=== PATIENT | male | born 1965 | race Caucasian/White ===

== ENCOUNTER 2025-06-09 04:51 | Inpatient (IN) | payer MEDICAID ==
[2025-06-09] VITALS (10 sets, daily range): BP systolic 100–131; BP diastolic 54–87; PULSE 55–100; RESP 14–22; TEMP 97.6–99.2; O2SAT 92–100
[~2025-06-09] VITALS: Ht 188 cm; Wt 73.6 kg
--- NOTE | 2025-06-09 05:00 | Physician Documentation ---
History of Present Illness ~ Chief Complaint: Bloody Stools Stated Complaint: TRANSFER SE M ALS Time Seen by MD: 04:59 Mode of Arrival: EMS HPI Patient presents to the emergency room for evaluation of GI bleed sent from [facility]. Over the past day he has noticed some black tarry stools and possible hematemesis from vomiting that happened on the side of the road that has dark. Patient was found to be profoundly anemic requiring 2 units of packed red blood cells at sending facility. He states he is feeling much better. No additional bloody stools. Patient does take naproxen a proximally twice a week and drinks moderately but has a distant history of drinking heavily. He is not on blood thinners Medication Reconciliation Allergies: Coded Allergies: No Known Allergies (Unverified , 06/09/25) Scheduled Atorvastatin Calcium (Atorvastatin Calcium), 1 TAB PO DAILY, (Reported) Felodipine (Felodipine ER), 1 TAB PO DAILY, (Reported) Lisinopril (Lisinopril), 1 TAB PO DAILY, (Reported) Pantoprazole Sodium (PROTONIX tablet), 40 MG PO BID Review of Systems ROS All review of systems negative except as per HPI Physical Exam Vital Signs: Temperature: 98.2, Source: Oral, Heart Rate: 73, Respiratory Rate: 16, BP: 127/84, Pulse Oximetry: 97, Weight: 73.600 Physical Exam General: Patient is awake, alert, oriented x4 in no acute distress Head: Normocephalic and atraumatic. Eyes: Conjunctival normal. EOMI. PERRL. ENT: Mucous membranes moist. Neck: Supple, trachea is midline. Chest: Clear to auscultation bilaterally without rales, rhonchi, or wheezes. There is no accessory muscle use or retractions. Cardiac: RRR without murmurs, gallops, or rubs. Abd: Soft, nondistended, nontender, with normoactive bowel sounds. No guarding, rebound, or rigidity. Progress Results/Orders Results/Orders Orders - CATRACHO SAGE MD Monitor (06/09/25 05:03) Saline Lock (06/09/25 05:03) Page Hospitalist (06/09/25 05:03) Fill Out Med Reconciliation (06/09/25 05:03) Completed Orders - CATRACHO SAGE MD Cbc/Diff (06/09/25 05:03) BMP (06/09/25 05:03) PTT (06/09/25 05:03) Pt Inr (06/09/25 05:03) Urinalysis, Cult If Indicated (06/09/25 05:03) Type And Screen (06/09/25 05:03) Electrocardiogram (06/09/25 05:03) Nothing By Mouth (06/09/25 Breakfast) Pantoprazole 40mg/Ns 100ml Bag (Protonix (06/09/25 05:05) Pantoprazole 40mg/Ns 100ml Bag (Protonix (06/09/25 05:41) ALT (06/09/25 05:26) AST (06/09/25 05:26) Total Bili (06/09/25 05:26) MG (06/09/25 05:26) Lipase (06/09/25 05:26) Laboratory Tests Test 06/09/25 05:26 White Blood Count 9.8 Red Blood Count 3.17 L Hemoglobin 8.6 L Hematocrit 25.7 L Mean Corpuscular Volume 81.1 Mean Corpuscular Hemoglobin 27.1 Mean Corpuscular Hemoglobin Concent 33.4 Red Cell Distribution Width 16.4 H Platelet Count 409 Mean Platelet Volume 6.8 L Neutrophils (%) (Auto) 79.2 H Lymphocytes (%) (Auto) 12.4 L Monocytes (%) (Auto) 7.2 Eosinophils (%) (Auto) 0.8 Basophils (%) (Auto) 0.4 Neutrophils # (Auto) 7.8 H Lymphocytes # (Auto) 1.2 Monocytes # (Auto) 0.7 Eosinophils # (Auto) 0.1 Basophils # (Auto) 0.0 CBC Comment Prothrombin Time 11.0 INR International Normalized Ratio 1.1 Activated Partial Thromboplast Time 23 Coagulation Comments Sodium Level 137 Potassium Level 4.0 Chloride Level 105 Carbon Dioxide Level 27.3 Anion Gap 5 L Blood Urea Nitrogen 38 H Creatinine 0.82 Estimated GFR/1.73 m2 > 90 BUN/Creatinine Ratio 46.3 H Glucose Level 100 Calcium Level 7.7 L Magnesium Level 1.7 Total Bilirubin 0.6 Aspartate Amino Transf (AST/SGOT) 16 Alanine Aminotransferase (ALT/SGPT) 15 Alkaline Phosphatase 61 Alkaline Phosphatase Iso-Intestine 1 Alkaline Phosphatase Iso-Bone 13 Alkaline Phosphatase Iso-Liver 86 Albumin 2.6 L Lipase 26 Chemistry Comments Medical Decision Making Additional information obtaine: other Findings Patient presented to the emergency room as transfer from [facility] for GI bleed status post 2 units of transfused blood. We will continue Protonix and consult Gastroenterology. Currently the patient's vital signs are stable. Diff Dx GI Bleed:Consideration: Include: AE fistula, Angiodysplasia, Bleeding diathesis, Blood loss anemia, Carcinoma, Diverticulosis, Diverticulitis, Esophageal varicies, Esophagitis, Gastritis, Gastroenteritis, Inflammatory BD, Jane-Negrete syndrome, Meckel's diverticulum, PUD, Other Departure Admitted to Inpatient Unit: yes, to hospitalist Impression: Primary Impression: GI bleed Condition: Guarded Referrals: NO PRIMARY CARE PROVIDER (PCP) Prescriptions Pantoprazole Sodium (PROTONIX tablet) 40 Mg Tablet.dr 40 MG PO BID, #60 TAB.SR Prov: JOHN SANCHEZ 06/11/25 Critical Care Note Total Time (mins): 30 Critical Care Note The very real possibility of a deterioration of this patient's condition required the highest level of my preparedness for sudden, emergent intervention. I provided critical care services, which included medication orders, frequent reevaluations of the patient's condition and response to treatment, ordering and reviewing test results, and discussing the case with various consultants. Excludes time spent performing separately billable procedures. The critical care time associated with the care of the patient was 30 minutes not counting procedures Signature Scribe Signature: No scribe Attestation: The note accurately reflects work and decisions made by me.Catracho Sage MD 06/09/25 05:07 CATRACHO SAGE MD Jun 09, 2025 04:59
--- NOTE | 2025-06-09 05:13 | ELECTROCARDIOGRAPH REPORT ---
[facility] Test Date: 2025-06-09 Test Time: 05:10:27 Pat Name: SHAHANA MILES Department: [facility]- Patient ID: [facility]-[id number] Room: Gender: M Qa Lead: : 1965 Requested By: CALISTA LEONARD Order Number: [id number] Reading MD: Measurements Intervals Revloc Rate: 70 P: 67 IN: 156 QRS: 79 QRSD: 84 T: 69 QT: 414 QTc: 447 Interpretive Statements Sinus rhythm RSR' in V1 or V2, probably normal variant Please click the below link to view image of tracing.
[2025-06-09 05:45] LABS: MEAN PLATELET VOLUME 6.8 FL (7.4-10.4); RED CELL DISTRIBUTION WIDTH 16.4 % (11.5-14.5)
[2025-06-09] MEDS ORDERED: magnesium sulf-water 4G/100mL 100 ML IV PRN (05:45)
[2025-06-09] MEDS ORDERED: ondansetron/PF 4mg/2ml inj IV PRN (05:45)
[2025-06-09] MEDS ORDERED: magnesium sulf-water 2g/50mL 50 ML IV PRN (05:45)
[2025-06-09] MEDS ORDERED: potassium Cl 40MEQ/1/2NS 520ml 520 ML IV PRN (05:45)
[2025-06-09] MEDS ORDERED: magnesium Cl slow-release 64mg tablet PO PRN (05:45)
[2025-06-09] MEDS ORDERED: potassium Cl 20 mEq SR tablet PO PRN ×2 (05:45)
[2025-06-09] MEDS: pantoprazole 40MG/NS 100ML BAG 100 ML IV SCH (05:46)
[2025-06-09] MEDS: pantoprazole 40MG/NS 100ML BAG 100 ML IV ONE (05:46)
[2025-06-09] MEDS ORDERED: ATOR20TA66 PO (05:50)
[2025-06-09] MEDS ORDERED: LISI20TA28 PO (05:50)
[2025-06-09] MEDS ORDERED: FELO10TA46 PO (05:50)
--- NOTE | 2025-06-09 05:57 | HISTORY AND PHYSICAL-Residence ---
History & Physical Providers to CC Resident Creating Document: POOL MORALES RES ~ History of Present Illness Reason for Admit\Complaint: GI bleeding History of Present Illness 59 years old male with history of hypertension, hypercholesterolemia, alcohol use disorder transferred to the ED due to evaluation of GI bleeding. Patient reported he had one time black tarry stool last night and to 3 times soft dark stool since yesterday. He also reported one time vomiting, he is not sure if there was any blood or coffee ground emesis or not. He denied any abdominal pain shortness of breaths or chest pain. He reported he had dark stool intermittently however it went away by itself after one day. He also reported intermittent abdominal pain which improved with drinking milk. Patient is not taking any aspirin or anticoagulation meds, take naproxen and Tylenol intermittently not in a daily basis. He used to drink alcohol heavily for years as his report he decreased the amount of drinking. He reported he drinking couple of beers every other day currently. Patient reported he had colonoscopy last week in [facility] as his report it was normal and need to repeated in 10 years. He did not have any endoscopy. Patient had hemoglobin 6.9, RBC 2.72, and hematocrit 21.4 and [place] as they report patient had hemoglobin 15 in August. Patient received 2 units blood and transferred to our facility Allergies: Coded Allergies: No Known Allergies (Unverified , 06/09/25) Home Medications Home Medications Active Reported Atorvastatin Calcium 20 Mg Tablet 1 Tab PO DAILY Felodipine ER (Felodipine) 10 Mg Tab.er.24h 1 Tab PO DAILY Lisinopril 20 Mg Tablet 1 Tab PO DAILY Past Medical History Past Medical History Alcohol use disorder Hypertension Dyslipidemia Past Surgical History Surgical History Comment Noncontributory Family History Family History: Patient reports no known family medical history. Past Social History Smoking: Non-Smoker Alcohol Use: Other (Patient used to drink alcohol hard liquor everyday, as his reported cut it back since six months ago to couple of beer every other day) Drug Use: None ROS ROS Constitutional: No fever, mild dizziness, mild weakness. no change in appetite/weight HEENT: No blurring of the vision, No sore throat, epistaxis, tinnitus Cardiovascular: no chest pain/discomfort, palpitations, no syncope. No pedal edema Respiratory: No sob, cough,, hemoptysis Gastrointestinal: As HPI Genitourinary: No frquency, urgency, incontinence, nocturia. No dysuria, hematuria Musculoskeletal: No arthralgia, myalgia Endocrine: No polydipsia, polyuria. No heat or cold intolerance Neurologic: No headache, vertigo. No weakness, no numbness or tingling of extremities Psychiatric: No hallucinations/delusions, no anhedonia, no suicidal ideation Exam Vitals: Vital Signs Date Time Temp Pulse Resp B/P (MAP) Pulse Ox O2 Delivery O2 Flow Rate FiO2 06/09/25 04:58 16 06/09/25 04:52 98.2 73 97 General: General: Awake and Alert, no acute distress. HEENT: Conjunctiva pale, Sclera clear, Mucus Membranes moist. Neck: Supple without masses and tenderness. Resp: Lungs clear to auscultation bilaterally. Heart: Regular Rate and rhythm, normal S1 and S2 Abdomen: Soft and non tender no organomegaly Extremities: No cyanosis,clubbing or edema. Skin: Warm and Dry. Neurological: Speech is clear, alert, and oriented x 4, no gross neurological deficits Diagnostic Data Last Recorded Lab Results: 06/09/25525 Diagnostic Data: Laboratory Tests Test 06/09/25 05:26 Coagulation Comments Advance Care Planning Advanced Care plannin - 30 Minutes Additional Plan 59 years old male with history of hypertension, hypercholesterolemia, alcohol use disorder transferred to the ED due to evaluation of GI bleeding GI bleeding possibly upper GI bleeding Patient presented with black tarry stool, suspected hematemesis, history of NSAIDs and alcohol use disorder Patient received 2 units blood in [place] initial hemoglobin was 6.9, hemoglobin in August was 15 as [place] report Differential diagnosis could be peptic ulcer disease, gastritis/duodenitis, esophagitis, esophageal or gastric varices We will consult GI for endoscopy Protonix drip, and octreotide drip started Continue monitoring H&H q.6 Normocytic hypochromic anemia Secondary to rapid blood loss due to GI bleeding Patient had hemoglobin 6.9, RBC 2.72, and hematocrit 21.4 and [place] as they report patient had hemoglobin 15 in August. Patient received 2 units blood and transferred to our facility We will continue monitoring hemoglobin q.h.s. Alcohol use disorder Thiamine, folic acid started On alcohol withdrawal protocol Code Status: Full DVT prophylaxis: SCDs Analgesia/sedation: Non Line/tube: Peripheral GI prophylaxis: Protonix drip Nutrition: NPO PT: Yes Prognosis: Guarded Disposition: Continue monitoring patient in PCU floor, NPO, waiting for GI consultation Pool Morales MD Internal Medicine Resident Plan reviewed with bedside team. Patient seen through remote audiovisual assessment through HIPAA compliant setup. All labs, flowsheets, and images reviewed Cumulative nonprocedural care time spent in directed patient care = 30 min Date of Service: Jun 09, 2025 Billing Provider: DEEPTI FRAZIER MD, ELAHE, RES Jun 09, 2025 05:57 DEEPTI FRAZIER MD Jun 09, 2025 07:07
[2025-06-09] MEDS: normal saline 1000ml 1,000 ML IV SCH (06:02)
[2025-06-09 06:07] LABS: CREATININE 0.82 MG/DL (0.60-1.10); TOTAL CARBON DIOXIDE 27.3 MMOL/L (24-32); eCRCL 100 ML/MIN; eGFR > 90 ML/MIN
[2025-06-09 06:18] LABS: LEUKOCYTE ESTERASE ,URINE NEGATIVE (Neg); NITRITES, URINE NEGATIVE (Neg); OCCULT BLOOD,URINE NEGATIVE (Neg)
[2025-06-09 06:23] LABS: UA COLLECTION TYPE CLN CATCH MIDSTREAM
[2025-06-09 06:35] LABS: APTT 23 SECONDS (22-32); INR 1.1 INR
[2025-06-09] MEDS: octreotide inj. 500 MCG in normal saline 100ml IV soln 97.5 ML IV SCH (07:15)
[2025-06-09] MEDS: multivitamins, therapeutics tablet PO SCH (08:00)
--- NOTE | 2025-06-09 08:09 | CONSULTATION REPORT - RESIDENT ---
Consult Providers to CC Resident Creating Document: KERRY MELLYKANE Eckert RES History of Present Illness Reason for Admit\Complaint: Reason for GI consult: Melena History of Present Illness 59-year-old male patient transferred from [facility], presented with chief complaint of black tarry stool. The patient reports that he experienced a total of three episodes of black tarry stools. He states that this is the 1st time that he has experienced symptoms like this. He also endorses some on and off abdominal pain which started approximately one month ago, localized at the level of the mesogastrium, 8-9/10 in intensity when it appears, usually goes away by itself. Among relieving factors he states that taking milk helps. The patient denies any radiation of this pain, and he is not able to recognize any aggravating factors. He recalls the use of naproxen intermittently for shoulder pain, the last time he took was on Friday. Daughter NSAIDs or anticoagulants reported. Last colonoscopy was one week ago which was reported normal. He never had any endoscopy in the past. On lab work he was found with severe anemia, required transfusion of 2 units of blood at the other facility. GI was consulted for further management of this suspected upper gastrointestinal bleeding. Allergies: Coded Allergies: No Known Allergies (Unverified , 06/09/25) Home Medications Home Medications Active Reported Atorvastatin Calcium 20 Mg Tablet 1 Tab PO DAILY Felodipine ER (Felodipine) 10 Mg Tab.er.24h 1 Tab PO DAILY Lisinopril 20 Mg Tablet 1 Tab PO DAILY Past Medical History Past Medical History Alcohol use disorder. Hypertension. Dyslipidemia Past Surgical History Surgical History Comment No surgical history. Family History Family History: Patient reports no known family medical history. Exam Vitals: Vital Signs Date Time Temp Pulse Resp B/P (MAP) Pulse Ox O2 Delivery O2 Flow Rate FiO2 06/09/25 07:50 55 16 117/81 (93) 99 0 06/09/25 04:52 98.2 Physical exam: General: Awake, alert, oriented. No acute distress. Well-developed, hydrated and well-built nourished. No Jaundice or clubbing. HEENT: Conjunctive are pale, sclerae clear, no icterus, pupil is equal in both sides, reactive to light, no ear discharge, no pharyngeal erythema or an edema. Neck: Supple, no adenopathy, thyromegaly. Trachea is midline. No JVD. Chest: Respiratory: Vesicular breath sounds. No ronchi, crepitus or wheezing. Resonance is normal upon percussion of all lung bacon. Cardiovascular: S1-S2 regular sinus rhythm and, regular rate, no gallops, no rubs, no murmurs Abdomen: No visible distention, Bowel sounds present on auscultation, on palpation: soft, nontender, no guarding, no rigidity. Extremities: No obvious deformities, no pitting edema bilaterally, capillary refill intact, peripheral pulsations are intact on both sides Neurologic: Mental status: alert and conscious, oriented to place, person and time, preserved memory, normal speech. Cranial nerves I-XII: Normal. Motor system: Preserved power, coordination, no evidenced involuntary movements, strength 5/5 in four extremities. Sensory system: Preserved temperature, pain and vibration sensation. 2+ deep tendon reflexes in biceps, triceps, quadriceps. Negative Babinski. Cerebellar: No nystagmus, dysdiadochokinesia, normal [id number] testing. Skin: Warm and dry. Diagnostic Data Last Recorded Lab Results: 06/09/2552506/09/2526 Diagnostic Data: Laboratory Tests Test 06/09/25 05:26 Prothrombin Time 11.0 SECONDS (9.0-12.0) INR International Normalized Ratio 1.1 INR Activated Partial Thromboplast Time 23 SECONDS (22-32) Coagulation Comments Additional Plan Assessment and plan: 59-year-old male patient transferred from [facility], he presented at the other facility with chief complaint of melena. He was found with severe anemia, transfused 2 units of blood, current hemoglobin 8.6. Hemodynamically stable. GI has been consulted for further management of suspected upper gastrointestinal bleeding. Upper gastrointestinal bleeding. 1. Peptic ulcer disease. Suspected as this is the most common pathology associated with the upper gastrointestinal bleeding. The patient endorsed recent use of NSAIDs. 2. Esophageal varices. Suspected due to the history of alcohol consumption. 3. Gastritis. The patient presented to [facility] with chief complaint of melena. So far he received 2 units of blood. Hemodynamically stable. Recommendations: Protonix drip. Continue octreotide drip. Transfuse if hemoglobin levels dropped below seven. NPO for EGD. Plan for endoscopy. Other comorbidities. Hypertension. Dyslipidemia. Continue management as per primary team. Code status: Full code DVT prophylaxis: SCDs Analgesia/sedation: Lorazepam Line/tube: PIV GI prophylaxis: Protonix Nutrition: NPO PT: Yes Prognosis: Guarded Kane Ferreira Internal Medicine Resident [facility] Date of Service: Jun 09, 2025 Billing Provider: JAVED DIMAS MD, FRANCO LUIS, RES Jun 09, 2025 08:09
[2025-06-09] MEDS: K and/or MAG REPLACEMENT MC SCH (08:41)
[2025-06-09 08:48] LABS: MEAN PLATELET VOLUME 6.8 FL (7.4-10.4); RED CELL DISTRIBUTION WIDTH 16.5 % (11.5-14.5)
--- NOTE | 2025-06-09 08:51 | RADIOLOGY REPORT ---
INDICATION: Evaluation of cirrhosis TECHNIQUE: Multiple real-time sonographic images of the abdomen were obtained. COMPARISON: None FINDINGS: The liver is homogenous in echogenicity. The liver measures 15.7 cm. No intrahepatic biliary ductal dilatation is noted. The gallbladder wall measures 0.2 cm and is unremarkable. No gallstones or sludge is seen. The common duct measures 0.3 cm and is unremarkable. No pericholecystic fluid is noted. Negative sonographic dumont's sign noted. The right kidney measures 11.4 cm. No hydronephrosis. The pancreas is not well visualized due to obscuration from bowel gas. The visualized portions of the IVC and aorta are grossly unremarkable. IMPRESSION: 1. No acute process. Normal echotexture and contour of the liver.
[2025-06-09] MEDS: thiamine 100mg/ml 2ml inj. IV SCH (08:52)
[2025-06-09] MEDS: folic acid 1mg/0.2ml inj IV SCH (08:52)
[2025-06-09] MEDS ORDERED: midazolam 1 mg/ML 2ml injection ONE (11:30)
[2025-06-09] MEDS ORDERED: propofol inj 20 ML IV ONE (11:32)
[2025-06-09 14:53] LABS: MEAN PLATELET VOLUME 6.8 FL (7.4-10.4); RED CELL DISTRIBUTION WIDTH 16.7 % (11.5-14.5)
[2025-06-09 18:25] LABS: MEAN PLATELET VOLUME 6.3 FL (7.4-10.4); RED CELL DISTRIBUTION WIDTH 16.8 % (11.5-14.5)
--- NOTE | 2025-06-09 18:43 | PROGRESS NOTE ---
Daily Progress Note Providers to CC ~ Antibiotic Timeout Antibiotic Ordered?: No Subjective Patient was seen in ER bed 6. Today. Patient denied any further episode of black tarry stools. He mentioned since he is here in ER he has not pass the stools. Denied any pain over abdomen. He does not feel that he is drinking much. Objective Vital Signs Date Time Temp Pulse Resp B/P (MAP) Pulse Ox O2 Delivery O2 Flow Rate FiO2 06/09/25 12:50 78 06/09/25 12:30 14 123/84 (97) 92 Room Air 0.0 06/09/25 11:45 98.1 Result Diagram: 06/09/25 1814 06/09/25 0526 General-patient not in any acute distress, alert awake age-appropriate, looks comfortable HEENT-atraumatic normocephalic, neck supple without elevated JVD, no thyromegaly or carotid bruit. No lymphadenopathy bilaterally. Eyes-no icterus or pallor seen in eyes Chest-clear to auscultation bilaterally, breathing nonlabored no tachypnea, no wheezing, no crepitation, no crackles. Heart-S1-S2 normal, regular heart rate no murmur Abdomen bowel sounds positive on auscultation, soft nondistended nontender no guarding, no rigidity Skin no active skin rash/signs of chronic hyperpigmentation present over lower extremity Neurology-grossly intact, nonfocal alert awake oriented Extremity- no pedal edema able to move all 4 extremities Psychiatry - patient is not confused or agitated cooperated during physical examination Coagulation Studies Laboratory Tests Test 06/09/25 05:26 Prothrombin Time 11.0 SECONDS (9.0-12.0) INR International Normalized Ratio 1.1 INR Activated Partial Thromboplast Time 23 SECONDS (22-32) Coagulation Comments Problem\Assessment\Plan 59 years old male with history of hypertension, hypercholesterolemia, alcohol use disorder transferred to the ED due to evaluation of GI bleeding GI bleeding possibly upper GI bleeding Patient presented with black tarry stool, suspected hematemesis, history of NSAIDs and alcohol use disorder Patient received 2 units blood in [place] initial hemoglobin was 6.9, hemoglobin in August was 15 as [place] report Differential diagnosis could be peptic ulcer disease, gastritis/duodenitis, esophagitis, esophageal or gastric varices GI consultation done Dr. Redding we will evaluate the patient on Protonix drip, and octreotide drip will Continue monitoring H&H . Hemoglobin and hematocrit stable Normocytic hypochromic anemia Secondary to rapid blood loss due to GI bleeding Patient had hemoglobin 6.9, RBC 2.72, and hematocrit 21.[address] [place] as they report patient had hemoglobin 15 in August. Patient received 2 units blood and transferred to our facility We will continue monitoring hemoglobin q.h.s. Alcohol use disorder Thiamine, folic acid started On alcohol withdrawal protocol Code Status: Full DVT prophylaxis: SCDs Analgesia/sedation: Non Line/tube: Peripheral GI prophylaxis: Protonix drip PT: Yes Current condition is guarded further management as recommended by GI specialist Dr Redding and we will continue to follow patient in a.m. Date of Service: Jun 09, 2025 Billing Provider: AVEL VIDAL MD Common Visit Codes: 14600-[id number] INP/OBS CARE(HIGH) AVEL VIDAL MD Jun 09, 2025 18:43
[2025-06-10] VITALS (7 sets, daily range): BP systolic 100–121; BP diastolic 60–76; PULSE 62–76; RESP 12–20; TEMP 97–97.7; O2SAT 92–99
[2025-06-10 01:48] LABS: MEAN PLATELET VOLUME 6.6 FL (7.4-10.4); RED CELL DISTRIBUTION WIDTH 16.9 % (11.5-14.5)
[2025-06-10 07:01] LABS: MEAN PLATELET VOLUME 6.6 FL (7.4-10.4); RED CELL DISTRIBUTION WIDTH 16.9 % (11.5-14.5)
[2025-06-10 07:26] LABS: CREATININE 0.98 MG/DL (0.60-1.10); TOTAL CARBON DIOXIDE 27.8 MMOL/L (24-32); eCRCL 83 ML/MIN; eGFR 78 ML/MIN
[2025-06-10 08:17] LABS: ALKALINE PHOSPHATASE, S 61 IU/L (47-123)
--- NOTE | 2025-06-10 09:32 | PROGRESS NOTE- Residence ---
Progress Note - Resident Providers to CC Resident Creating Document: HARMEETHARMEET KOWALSKIKANE, RES ~ Antibiotic Timeout Antibiotic Ordered?: No Subjective The patient has been evaluated at the bedside. No overnight events. Last bowel movement yesterday, dark brownish. Tolerating regular diet. Hemoglobin and hematocrit had remained stable. No more transfusions required so far. Last transfusion at the other facility. Objective Vital Signs Date Time Temp Pulse Resp B/P (MAP) Pulse Ox O2 Delivery O2 Flow Rate FiO2 06/10/25 06:30 64 06/10/25 02:00 97.4 18 100/60 (73) 99 Room Air 06/09/25 20:00 0.0 Physical exam: General: Awake, alert, oriented. No acute distress. Well-developed, hydrated and well-built nourished. No Jaundice or clubbing. HEENT: Conjunctive are pale, sclerae clear, no icterus, pupil is equal in both sides, reactive to light, no ear discharge, no pharyngeal erythema or an edema. Neck: Supple, no adenopathy, thyromegaly. Trachea is midline. No JVD. Chest: Respiratory: Vesicular breath sounds. No ronchi, crepitus or wheezing. Resonance is normal upon percussion of all lung bacon. Cardiovascular: S1-S2 regular sinus rhythm and, regular rate, no gallops, no rubs, no murmurs Abdomen: No visible distention, Bowel sounds present on auscultation, on palpation: soft, nontender, no guarding, no rigidity. Extremities: No obvious deformities, no pitting edema bilaterally, capillary refill intact, peripheral pulsations are intact on both sides Neurologic: Mental status: alert and conscious, oriented to place, person and time, preserved memory, normal speech. Cranial nerves I-XII: Normal. Motor system: Preserved power, coordination, no evidenced involuntary movements, strength 5/5 in four extremities. Sensory system: Preserved temperature, pain and vibration sensation. 2+ deep tendon reflexes in biceps, triceps, quadriceps. Negative Babinski. Cerebellar: No nystagmus, dysdiadochokinesia, normal [id number] testing. Skin: Warm and dry. Result Diagram: 06/10/25 0640 06/10/25 0640 Coagulation Studies Laboratory Tests Test 06/09/25 05:26 Prothrombin Time 11.0 SECONDS (9.0-12.0) INR International Normalized Ratio 1.1 INR Activated Partial Thromboplast Time 23 SECONDS (22-32) Coagulation Comments Assessment Assessment 59-year-old male patient transferred from [facility], he presented at the other facility with chief complaint of melena. He was found with severe anemia, transfused 2 units of blood, current hemoglobin 8.6. Hemodynamically stable. GI was consulted for evaluation of this possible upper gastrointestinal bleeding. Plan Plan EGD performed yesterday showed normal esophagus. Large paraesophageal hernia. Normal mucosa was found in the entire stomach. Biopsied. Nonbleeding duodenal ulcer with a flat pigmented spot (Pj class IIc). Normal 2nd portion of the duodenum. Recommendations: Continue regular diet. Continue Protonix 40 mg daily. Await for pathology results. Referred to a surgeon at appointment to be consulted for evaluation for repair of hernia. Follow-up as an outpatient with GI in 3 weeks. Other comorbidities. Hypertension. Dyslipidemia. Continue management as per primary team. Code status: Full code DVT prophylaxis: SCDs Analgesia/sedation: Lorazepam Line/tube: PIV GI prophylaxis: Protonix Nutrition: Regular diet PT: Yes Prognosis: Guarded Kane Kowalski Internal Medicine Resident [facility] Date of Service: Jun 10, 2025 Billing Provider: JAVED DIMAS MD, FRANCO LUIS, RES Jun 10, 2025 09:32
[2025-06-10] MEDS: FLU VACC TS2025-26(6MOS UP)/PF (FLULAVAL) 45 MCG/0.5 ML SYRINGE IMVAC ONE (13:15)
[2025-06-10 13:51] LABS: MEAN PLATELET VOLUME 6.9 FL (7.4-10.4); RED CELL DISTRIBUTION WIDTH 17.2 % (11.5-14.5)
--- NOTE | 2025-06-10 15:39 | PROGRESS NOTE ---
Daily Progress Note Providers to CC ~ Antibiotic Timeout Antibiotic Ordered?: No Subjective Patient was seen in his room . Last bowel movement yesterday, dark brownish. Tolerating regular diet. Hemoglobin and hematocrit had remained stable. No more transfusions required so far. Last transfusion at the other facility. Objective Vital Signs Date Time Temp Pulse Resp B/P (MAP) Pulse Ox O2 Delivery O2 Flow Rate FiO2 06/10/25 11:00 97.6 76 12 120/70 (87) 98 Room Air 06/10/25 08:00 0.0 Result Diagram: 06/10/25 1314 06/10/25 0640 General-patient not in any acute distress, alert awake age-appropriate, looks comfortable HEENT-atraumatic normocephalic, neck supple without elevated JVD, no thyromegaly or carotid bruit. No lymphadenopathy bilaterally. Eyes-no icterus or pallor seen in eyes Chest-clear to auscultation bilaterally, breathing nonlabored no tachypnea, no wheezing, no crepitation, no crackles. Heart-S1-S2 normal, regular heart rate no murmur Abdomen bowel sounds positive on auscultation, soft nondistended nontender no guarding, no rigidity Skin no active skin rash Neurology-grossly intact, nonfocal alert awake oriented Extremity- no pedal edema able to move all 4 extremities Psychiatry - patient is not confused or agitated cooperated during physical examination Coagulation Studies Laboratory Tests Test 06/09/25 05:26 Prothrombin Time 11.0 SECONDS (9.0-12.0) INR International Normalized Ratio 1.1 INR Activated Partial Thromboplast Time 23 SECONDS (22-32) Coagulation Comments Problem\Assessment\Plan 59 years old male with history of hypertension, hypercholesterolemia, alcohol use disorder transferred to the ED due to evaluation of GI bleeding GI bleeding possibly upper GI bleeding Patient presented with black tarry stool, suspected hematemesis, history of NSAIDs and alcohol use disorder Patient received 2 units blood in [place] initial hemoglobin was 6.9, hemoglobin in August was 15 as [place] report GI consultation done Dr. Redding we will evaluate the patient on Protonix drip, and octreotide drip will Continue monitoring H&H . Hemoglobin and hematocrit stable EGD performed yesterday showed normal esophagus. Large paraesophageal hernia. Normal mucosa was found in the entire stomach. Biopsied. Nonbleeding duodenal ulcer with a flat pigmented spot (Pj class IIc). Normal 2nd portion of the duodenum. Normocytic hypochromic anemia Secondary to rapid blood loss due to GI bleeding Patient had hemoglobin 6.9, RBC 2.72, and hematocrit 21.4 and [facility] as they report patient had hemoglobin 15 in August. Patient received 2 units blood and transferred to our facility We will continue monitoring hemoglobin q.h.s. Alcohol use disorder Thiamine, folic acid started On alcohol withdrawal protocol Large paraesophageal hernia- GI specialist referred to a surgeon at appointment to be consulted for evaluation for repair of hernia. Code Status: Full DVT prophylaxis: SCDs Analgesia/sedation: Non Line/tube: Peripheral GI prophylaxis: Protonix drip PT: Yes Current condition is guarded further management as recommended by GI specialist Dr Redding and we will continue to follow patient in a.m from hospitalist team Date of Service: Jun 10, 2025 Billing Provider: AVEL VIDAL MD Common Visit Codes: [id number] INP/OBS CARE(HIGH) AVEL VIDAL MD Jun 10, 2025 15:39
[2025-06-10] MEDS ORDERED: pantoprazole 40MG/NS 100ML BAG 100 ML IV SCH (20:00)
[2025-06-10 20:14] LABS: MEAN PLATELET VOLUME 7.0 FL (7.4-10.4); RED CELL DISTRIBUTION WIDTH 16.8 % (11.5-14.5)
[2025-06-11 02:00] VITALS: BP 104/67; PULSE 60; RESP 17; TEMP 97; O2SAT 97
[2025-06-11 06:49] LABS: MEAN PLATELET VOLUME 6.5 FL (7.4-10.4); RED CELL DISTRIBUTION WIDTH 17.6 % (11.5-14.5)
[2025-06-11 07:00] VITALS: BP 114/72; PULSE 65; RESP 17; TEMP 97.4; O2SAT 98
[2025-06-11 07:02] LABS: CREATININE 0.88 MG/DL (0.60-1.10); TOTAL CARBON DIOXIDE 30.5 MMOL/L (24-32); eCRCL 93 ML/MIN; eGFR 88 ML/MIN
[2025-06-11 08:00] VITALS: RESP 17; O2SAT 98
[2025-06-11 11:00] VITALS: BP 118/81; PULSE 72; RESP 10; TEMP 96.9; O2SAT 99
[2025-06-11] MEDS ORDERED: PANT-47 PO (12:56)
--- NOTE | 2025-06-11 19:04 | DISCHARGE SUMMARY ---
Discharge Summary Providers to CC ~ Discharge Summary Admission Diagnosis: GI bleeding Hospital Course DATE OF ADMISSION: 06/09/2025 DATE OF DISCHARGE: 06/11/2025 Discharge Diagnosis\\Comment: Upper GI bleed secondary to a duodenal ulcer Normocytic hypochromic anemia Large paraesophageal hernia Alcohol use disorder Operations\\Procedures: EGD with biopsy Consultants: Dr Solis weasand trimmer Complications: None Condition on DC: Stable New Medications: Pantoprazole Sodium (PROTONIX tablet) 40 Mg Tablet.dr 40 MG PO BID, #60 TAB.SR Continued Medications: Atorvastatin Calcium (Atorvastatin Calcium) 20 Mg Tablet 1 TAB PO DAILY Felodipine (Felodipine ER) 10 Mg Tab.er.24h 1 TAB PO DAILY Lisinopril (Lisinopril) 20 Mg Tablet 1 TAB PO DAILY Discharge Summary: The patient was admitted by resident physician POOL Maddox under the superv ision of DEEPTI Booth MD with the following HPI:"59 years old male with history of hypertension, hypercholesterolemia, alcohol use disorder transferred to the ED due to evaluation of GI bleeding. Patient reported he had one time black tarry stool last night and to 3 times soft dark stool since yesterday. He also reported one time vomiting, he is not sure if there was any blood or coffee ground emesis or not. He denied any abdominal pain shortness of breaths or chest pain. He reported he had dark stool intermittently however it went away by itself after one day. He also reported intermittent abdominal pain which im proved with drinking milk. Patient is not taking any aspirin or anticoagulation meds, take naproxen and Tylenol intermittently not in a daily basis. He used to drink alcohol heavily for years as his report he decreased the amount of drinking. He reported he drinking couple of beers every other day currently. Patient reported he had colonoscopy last week in [facility] as his report it was normal and need to repeated in 10 years. He did not have any endoscopy. Patient had hemoglobin 6.9, RBC 2.72, and hematocrit 21.4 and [place] as they report patient had hemoglobin 15 in August. Patient received 2 units b lood and transferred to our facility." Patient did not require any blood cell transfusions during the hospitalization hemoglobin on admission was 8.6 on day discharge was 8.1 the patient did have an EGD which demonstrated a nonbleeding duodenal ulcer and the patient also has a large paraesophageal hernia which we will need to be repaired in the outpatient setting. The patient was on IV Protonix and discharged with a prescription for Protonix 40 mg p.o. b.i.d.. The patient has a history of alcohol use disorder however had no signs of alcohol withdrawal during hospitalization. Gen. No acute distress alert and oriented 4 Lungs clear to ascultation bilaterally, no wheezes rales or rhonchi appreciated Heart normal sinus rhythm no murmurs rubs or clicks noted Abdomen soft nontender bowel sounds are normoactive Lower extremities no clubbing cyanosis, nor edema appreciated bilaterally The patient felt ready to be discharged and was medically cleared to be discharged on 06/11/2025 The patient was seen and evaluated on day of discharge. Time spent on discharge 35 minutes *Problems/Diagnosis: (1) Acute duodenal ulcer with bleeding Total Time Spent on D/C: > 30 Minutes Date of Service: Jun 11, 2025 Billing Provider: JOHN SANCHEZ DO Common Visit Codes: 84747-PRN/OBS DISCH DAY >30min JOHN SANCHEZ DO Jun 11, 2025 19:03
[2025-06-13 05:11] LABS: BONE FRACTION: 13 % (12-68); INTESTINAL FRAC: 1 % (0-18); LIVER FRACTION: 86 % (13-88)
== END 2025-06-11 13:50 | disposition home or self-care (01) | DRG 241 ==
LOC: ER 04:52 → ED HOLD 05:49 → PCU 3S 10:17
PROVIDERS: ADMIT Internal Medicine Critical Care Medicine; ATTEND Internal Medicine
PROC: 0DB68ZX Excision of Stomach, Via Natural or Artificial Opening Endoscopic, Diagnostic (ICD-10-PCS; principal; 2025-06-09 11:26)
DX: K26.4 Chronic or unspecified duodenal ulcer with hemorrhage (principal); D50.9 Iron deficiency anemia, unspecified; E78.00 Pure hypercholesterolemia, unspecified; I10 Essential (primary) hypertension; F10.10 Alcohol abuse, uncomplicated; K44.9 Diaphragmatic hernia without obstruction or gangrene; Y90.9 Presence of alcohol in blood, level not specified; Z79.899 Other long term (current) drug therapy
CPT/HCPCS: 36415; 43239; 76700; 80048; 80053; 81003; 82247; 83690; 83735; 84075; 84080; 84450; 84460; 85025; 85027; 85610; 85730; 86885; 86900; 86901; 87081; 93005; 99291; A6449; A7000; G0378; J2250; J2354; J2470; J2704; J3411; J3490; J7030